=== PATIENT | female | born 1960 | race Caucasian/White ===

== ENCOUNTER 2016-08-30 13:35 | Emergency (ER) | payer BC ==
[2016-08-30 15:58] VITALS: BP 139/76
--- NOTE | 2016-08-30 16:19 | UC ---
Minor Trauma HPI - HPI Summary HPI Summary: Was walking her large dog downhill when the dog bolted. Dragged her off her feet. "I was airborn, then I hit the dog's head with my mouth and then my nose hit a log." No LOC. Was bleeding from a cut on her lip and nose. "I was so upset , I sat there for a while." Was able to walk home. No other injuries. No visual changes. No tinnitus. No vomiting. Teeth are not chipped, but "may be the slightest bit loose." No headache. Mainly the pain is just below her nose. - History of Current Complaint Chief Complaint: UCTrauma Stated Complaint: MOUTH,TEETH,NOSE PAIN-FALL Time Seen by Provider: 08/30/16 16:05 Hx Obtained From: Patient, Family/Greenhouse Technician Onset/Duration: Sudden Onset, Lasting Hours - 1 Onset Of Pain: Immediate Severity Initially: Severe Severity Currently: Mild Mechanism Of Injury: Direct Blow, Fall From A Standing Position Aggravating Factor(s): Nothing Alleviating Factor(s): Ice Associated Signs And Symptoms: Positive: Ecchymosis, Swelling - lip - Risk Factors Penetrating Injury Risk Factors: Negative Compartment Syndrome Risk Factors: Pain - Allergies/Home Medications Allergies/Adverse Reactions: Allergies Allergy/AdvReac Type Severity Reaction Status Date / Time Fluticasone [From Advair] Allergy Unknown Unknown Verified 08/30/16 15:58 Reaction Details Meperidine [From Demerol HCl] Allergy Unknown Unknown Verified 08/30/16 15:58 Reaction Details Penicillins Allergy Unknown Rash Verified 08/30/16 15:58 Salmeterol [From Advair] Allergy Unknown Unknown Verified 08/30/16 15:58 Reaction Details Silodosin [From Rapaflo] AdvReac Intermediate Headache Verified 08/30/16 15:58 [place] Allergy Unknown Unknown Uncoded 08/30/16 15:58 Reaction Details refecoxib-viox Allergy Unknown Unknown Uncoded 08/30/16 15:58 Reaction Details PMH/Surg Hx/FS Hx/Imm Hx Previously Healthy: Yes Endocrine History Of: Denies: Diabetes, Thyroid Disease Cardiovascular History Of: Denies: Cardiac Disorders, Hypertension, Pacemaker/ICD Respiratory History Of: Denies: COPD, Asthma GI/ History Of: Reports: Kidney Stones Denies: Ulcer, Renal Disease - HX KIDNEY STONE - Surgical History Surgical History: Yes Surgery Procedure, Year, and Place: sinus surgery 2010. hysterectomy. KIDNEY STONE REMOVED 2014 - Family History Known Family History: Negative: Respiratory Disease, Seizure Disorder - Social History Occupation: Employed Full-time Lives: With Family Alcohol Use: Daily Alcohol Amount: 1 GLASS WINE/NIGHT Substance Use Type: None Smoking Status (MU): Never Smoked Tobacco - Immunization History Most Recent Tetanus Shot: 01/2012 Review of Systems Constitutional: Negative Skin: Bruising Eyes: Negative ENT: Epistaxis - bled for about 15 min, now stopped Respiratory: Negative Cardiovascular: Negative Gastrointestinal: Negative Genitourinary: Negative Motor: Negative Neurovascular: Negative Musculoskeletal: Myalgia - diffuse, ines back and neck Neurological: Negative Psychological: Negative All Other Systems Reviewed And Are Negative: Yes Physical Exam Triage Information Reviewed: Yes Appearance: Well-Appearing, No Pain Distress, Well-Nourished Vital Signs: Initial Vital Signs Temp 97.8 F 08/30/16 15:54 Pulse 78 08/30/16 15:54 Resp 16 08/30/16 15:54 BP 139/76 08/30/16 15:54 Pulse Ox 99 08/30/16 15:54 Vital Signs Reviewed: Yes Eye Exam: Normal Eyes: Positive: Conjunctiva Clear ENT: Positive: Hearing grossly normal, Pharynx normal, TMs normal, Other: - laceration left anterior septum of nose, not actively bleeding, about 0.4cm long. Teeth intact, not palpably loose, none chipped. There is a shallow laceration on lower lip, about 0.4cm length. No active bleeding. Consistent with a tooth puncture. Not involving vermilion border. Negative: Nasal congestion, Nasal drainage, TM bulging, TM dull, TM red, Tonsillar swelling, Tonsillar exudate, Trismus, Muffled/hoarse voice Neck exam: Normal Neck: Positive: Supple Respiratory Exam: Normal Cardiovascular Exam: Normal Musculoskeletal Exam: Normal Neurological Exam: Normal Neurological: Positive: Alert, Muscle Tone Normal Psychological Exam: Normal Skin Exam: Normal Diagnostics - Laboratory Diagnostic Studies Completed/Ordered: XRay neg for fracture Minor Trauma Course/Dx - Differential Dx/Diagnosis Differential Diagnosis/HQI/PQRI: Contusion(s), Fracture Provider Diagnoses: facial contusion Discharge - Discharge Plan Condition: Stable Disposition: HOME Patient Education Materials: Facial Contusion (ED) Referrals: Nohemi Holm MD [Primary Care Provider] -
--- NOTE | 2016-08-30 16:49 | RAD ---
INDICATION: Facial injury. TECHNIQUE: 5 views of the facial bones were obtained. FINDINGS: No fracture is seen. There is mild S-shaped deviation of the nasal septum convex toward the left along its anterior superior portion and toward the right along its posterior portion. There is mucosal thickening and small air-fluid levels within both maxillary sinuses. IMPRESSION: 1. NO FRACTURE IS SEEN. 2. MUCOSAL THICKENING AND SMALL AIR-FLUID LEVELS WITHIN BOTH MAXILLARY SINUSES.
== END 2016-08-30 17:16 | disposition home or self-care (01) ==
LOC: UCCORT 13:35
DX: S00.83XA Contusion of other part of head, initial encounter (principal); W01.198A Fall on same level from slipping, tripping and stumbling with subsequent striking against other object, initial encounter; Y93.K1 Activity, walking an animal; Y92.9 Unspecified place or not applicable; Z88.0 Allergy status to penicillin; Z88.5 Allergy status to narcotic agent; Z88.8 Allergy status to other drugs, medicaments and biological substances
CPT/HCPCS: 70150; 99212; G0463

== ENCOUNTER 2017-07-25 12:51 | Emergency (ER) | payer BC ==
[2017-07-25 13:50] VITALS: BP 120/54
--- NOTE | 2017-07-25 14:50 | ED ---
Skin Complaint - HPI Summary HPI Summary: 57 year old female with a history of shingles presents with lesion on her left upper eyelid and right ear. - History of Current Complaint Chief Complaint: UCSkin Time Seen by Provider: 07/25/17 14:46 Stated Complaint: SKIN COMPLAINT Hx Obtained From: Patient Onset/Duration: Started Days Ago Timing: Constant Onset Severity: Moderate Current Severity: Moderate Pain Scale Used: 0-10 Numeric - 5 - Allergy/Home Medications Allergies/Adverse Reactions: Allergies Allergy/AdvReac Type Severity Reaction Status Date / Time Fluticasone [From Advair] Allergy Unknown Unknown Verified 07/25/17 13:43 Reaction Details Meperidine [From Demerol HCl] Allergy Unknown Unknown Verified 07/25/17 13:43 Reaction Details Penicillins Allergy Unknown Rash Verified 07/25/17 13:43 Salmeterol [From Advair] Allergy Unknown Unknown Verified 07/25/17 13:43 Reaction Details Silodosin [From Rapaflo] AdvReac Intermediate Headache Verified 07/25/17 13:43 [place] Allergy Unknown Unknown Uncoded 07/25/17 13:43 Reaction Details refecoxib-viox Allergy Unknown Unknown Uncoded 07/25/17 13:43 Reaction Details PMH/Surg Hx/FS Hx/Imm Hx Previously Healthy: Yes Endocrine/Hematology History: Denies: Hx Diabetes, Hx Thyroid Disease Cardiovascular History: Denies: Hx Hypertension, Hx Pacemaker/ICD Respiratory History: Denies: Hx Asthma, Hx Chronic Obstructive Pulmonary Disease (COPD) GI History: Denies: Hx Ulcer History: Reports: Hx Kidney Stones Denies: Hx Renal Disease - HX KIDNEY STONE Sensory History: Denies: Hx Hearing Aid Psychiatric History: Denies: Hx Panic Disorder - Surgical History Surgery Procedure, Year, and Place: sinus surgery 2010. hysterectomy. KIDNEY STONE REMOVED 2014 Infectious Disease History: No Infectious Disease History: Denies: Hx Hepatitis, Hx Human Immunodeficiency Virus (HIV), History Other Infectious Disease, Traveled Outside the [place] in Last 30 Days - Family History Known Family History: Positive: None Negative: Respiratory Disease, Seizure Disorder - Social History Alcohol Use: Daily Alcohol Amount: 1 GLASS WINE/NIGHT Substance Use Type: Reports: None Smoking Status (MU): Never Smoked Tobacco Review of Systems Constitutional: Negative Eyes: Negative ENT: Negative Cardiovascular: Negative Respiratory: Negative Gastrointestinal: Negative Genitourinary: Negative Musculoskeletal: Negative Positive: Rash Neurological: Negative Psychological: Normal All Other Systems Reviewed And Are Negative: Yes Physical Exam Triage Information Reviewed: Yes Vital Signs On Initial Exam: Initial Vitals Temp Pulse Resp BP 36.3 C 101 18 120/54 07/25/17 13:46 07/25/17 13:46 07/25/17 13:46 07/25/17 13:46 Vital Signs Reviewed: Yes Appearance: Positive: Well-Appearing Skin: Positive: Warm Head/Face: Positive: Normal Head/Face Inspection Eyes: Positive: Normal ENT: Positive: Normal ENT inspection Dental: Positive: Percussion Tenderness @ Neck: Positive: Supple Respiratory/Lung Sounds: Positive: Clear to Auscultation Cardiovascular: Positive: Normal Abdomen Description: Positive: Nontender Bowel Sounds: Positive: Present Musculoskeletal: Positive: Normal Neurological: Positive: Normal Psychiatric: Positive: Normal Diagnostics - Vital Signs Vital Signs Temp Pulse Resp BP 07/25/17 13:46 36.3 C 101 18 120/54 - Laboratory Lab Statement: Any lab studies that have been ordered have been reviewed, and results considered in the medical decision making process. Course/Dx - Course Assessment/Plan: rash. shingle like lesion - Diagnoses Provider Diagnoses: Shingles, Rash and nonspecific skin eruption Discharge - Discharge Plan Condition: Stable Disposition: HOME Prescriptions: Acyclovir [Zovirax 800 MG] 800 mg PO .5ID #35 tab Patient Education Materials: Shingles (ED) Referrals: Nohemi Holm MD [Primary Care Provider] - Anne العراقي [Medical Doctor] -
--- NOTE | 2017-07-27 07:17 | UC ---
- Progress Note Progress Note: wound culture - no organisms no change Jyothi 07/27/2017 Course/Dx - Diagnoses Provider Diagnoses: Shingles, Rash and nonspecific skin eruption
== END 2017-07-25 14:55 | disposition home or self-care (01) ==
LOC: UCCORT 12:51
DX: B02.39 Other herpes zoster eye disease (principal); Z72.89 Other problems related to lifestyle
CPT/HCPCS: 87070; 87077; 87186; 87205; 99212; G0463